=== PATIENT | female | born 1985 | race Caucasian/White ===

== ENCOUNTER 2017-08-15 01:22 | Inpatient (IN) | payer MEDICAID ==
[2017-08-15] VITALS (27 sets, daily range): BP systolic 104–152; BP diastolic 57–114; PULSE 20–167; RESP 18; TEMP 97.6–98.5; O2SAT 100
[~2017-08-15] VITALS: Ht 152.4 cm; Wt 70.3 kg
[2017-08-15] MEDS ORDERED: Iron PO (01:49)
[2017-08-15] MEDS ORDERED: Prenatal Vitamin PO (01:49)
[2017-08-15] MEDS ORDERED: LACTATED RINGER'S 1000 ML INJ 1,000 ML IV PRN (01:56)
[2017-08-15] MEDS ORDERED: LACTATED RINGER'S 1000 ML INJ 1,000 ML IV SCH (01:56)
[2017-08-15] MEDS ORDERED: LIDOCAINE HCL 1% 50 ML VIAL INFIL PRN (02:00)
[2017-08-15] MEDS ORDERED: MINERAL OIL 10 ML VIAL TOPICAL PRN (02:00)
[2017-08-15] MEDS ORDERED: SODIUM CHLORID 0.9% 500 ML INJ 500 ML IV PRN (02:00)
[2017-08-15] MEDS ORDERED: CITRIC ACID-SODIUM CITRATE LIQ 30 ML UDC PO SCH (02:00)
[2017-08-15] MEDS ORDERED: LIDOCAINE HCL 1% 50 ML VIAL I-DERMAL PRN (02:00)
[2017-08-15] MEDS ORDERED: ONDANSETRON HCL 4 MG/2 ML VIAL IV PUSH PRN (02:00)
[2017-08-15] MEDS ORDERED: OXYTOCIN 30 UNITS-500ML PREMIX 500 ML IV ONE (02:00)
[2017-08-15 02:03] LABS: AUTOMATED NEUTROPHIL # 6.4 TH/MM3 (1.8-7.7); BASOPHIL % 0.5 % (0.0-2.0); EOSINOPHIL # 0.1 TH/MM3 (0-0.4); EOSINOPHIL % 0.7 % (0.0-4.0); HEMATOCRIT 28.2 % (35.0-46.0); HEMOGLOBIN 9.2 GM/DL (11.6-15.3); LYMPH % 24.8 % (9.0-44.0); LYMPHOCYTE # 2.5 TH/MM3 (1.0-4.8); MEAN CELL VOLUME 75.1 FL (80.0-100.0); MEAN CORPUSCULAR HEMOGLOBIN 24.4 PG (27.0-34.0); MEAN CORPUSCULAR HGB CONC 32.5 % (32.0-36.0); MEAN PLATELET VOLUME 7.9 FL (7.0-11.0); MONO % 9.5 % (0.0-8.0); MONOCYTE # 0.9 TH/MM3 (0-0.9); NEUT % 64.5 % (16.0-70.0); PLATELET COUNT 360 TH/MM3 (150-450); RED BLOOD COUNT 3.75 MIL/MM3 (4.00-5.30); WHITE BLOOD COUNT 9.9 TH/MM3 (4.0-11.0)
[2017-08-15 02:09] LABS: AMORPHOUS SEDIMENT, URINE MOD; BACTERIA, URINE MOD /hpf; BILIRUBIN, URINE NEG (NEG); BLOOD, URINE MOD (NEG); GLUCOSE,URINE NEG (NEG); KETONE, URINE NEG (NEG); NITRITE,URINE NEG (NEG); SQUAMOUS EPITHELIAL CELL URINE 67 /hpf (0-5); URINE COLOR LIGHT-YELLOW (YELLW/STRAW); URINE LEUKOCYTE ESTERASE NEG (NEG)
[2017-08-15] MEDS ORDERED: fentaNYL 2MCG-BUPIV 0.125% 100 ML EPIDURAL PRN (02:15)
[2017-08-15] MEDS ORDERED: NO SYSTEM NARCOTICS PRN (02:15)
[2017-08-15] MEDS ORDERED: DO NOT ADMINISTER ANTICOAGULANTS PRN (02:15)
[2017-08-15] MEDS ORDERED: SODIUM CHLOR 0.9% 1000 ML INJ 1,000 ML IV PRN (02:16)
[2017-08-15] MEDS ORDERED: fentaNYL 2MCG-BUPIV 0.125% INJ 100 ML ONE (02:18)
--- NOTE | 2017-08-15 02:22 | HHI.HP ---
HPI Chief Complaint SROM, precipitous labor Date Seen: August 15, 2017 Time Seen: 02:00 Travel History International Travel<30 Days: No Contact w/Intl Traveler<30Days: No Known Affected Area: No History of Present Illness HPI Patient is a 32-year-old at 40 weeks who was late to care (37wks ) at [facility] who presents in precipitous labor. She had SROM at 12:30 AM this evening. She is complaining of intense regular contractions. All her labs are normal/unremarkable. GBS negative. Weeks Gestation: 40 Para: 3 : 4 History Past Medical History Narrative Medical Blood type A positive. Patient takes oral iron supplement for iron deficiency anemia. Obstetric History Obstetric History the history of 3 full-term deliveries, 2 spontaneous abortions, 3 living children Past Surgical History Narrative Surgical per EMR Surgical History: No Previous Surgery Family History Narrative Family History per EMR Family History: Negative Social History Narrative Social History per EMR Allergies-Medications (Allergen,Severity, Reaction): Coded Allergies: No Known Allergies (Verified Allergy, Unknown, 08/15/17) Home Meds Reported Medications [Iron] No Conflict Check, 1 TAB PO DAILY 08/15/17 [ Vitamin] No Conflict Check, 1 TAB PO DAILY 08/15/17 Narrative Medication Reported Meds & Active Scripts Active Reported [Iron] 1 Tab PO DAILY [ Vitamin] 1 Tab PO DAILY Review of Systems Except as stated in HPI: all other systems reviewed are Neg Physical Exam 134/101, 20, 97.9, pain 10 Vital Signs Date Time Temp Pulse Resp B/P (MAP) Pulse Ox O2 Delivery O2 Flow Rate FiO2 08/15/17 01:59 20 Narrative GENERAL: Well-nourished, well-developed patient. SKIN: Warm and dry. HEAD: Normocephalic and atraumatic. EYES: No scleral icterus. No injection or drainage. ENT: No nasal drainage noted. Mucous membranes pink. Airway patent. NECK: Supple, trachea midline. No JVD. CARDIOVASCULAR: Regular rate and rhythm without murmurs, gallops, or rubs. RESPIRATORY: Breath sounds equal bilaterally. No accessory muscle use. ABDOMEN/GI: Abdomen soft, non-tender, bowel sounds present, no rebound, no guarding Gravid to 40 weeks size GENITOURINARY: External Genitalia: intact and normal in appearance Cervix: [Medium consistency, midposition] Dilatation: [7 cm] Effacement: [90] Station: [0] Presentation: [Vertex] Membranes: [ruptured] Uterine Contractions: [q2min] FHT's: Category: [Category 2 secondary to tachycardia] Baseline: [160] Reactive: reactive Variability: Moderate variability with good accelerations noted Decels: none EXTREMITIES: No cyanosis or edema. BACK: Nontender without obvious deformity. No CVA tenderness. NEUROLOGICAL: Awake and alert. Motor and sensory grossly within normal limits. Five out of 5 muscle strength in all muscle groups. Normal speech. Caprini VTE Risk Assessment Caprini VTE Risk Assessment: No/Low Risk (score <= 1) Caprini Risk Assessment Model Point Value = 1 Point Value = 2 Point Value = 3 Point Value = 5 Age 41-60 Minor surgery BMI > 25 kg/m2 Swollen legs Varicose veins or History of unexplained or recurrent spontaneous Oral contraceptives or hormone replacement Sepsis (< 1 month) Serious lung disease, including pneumonia (< 1 month) Abnormal pulmonary function Acute myocardial infarction Congestive heart failure (< 1 month) History of inflammatory bowel disease Medical patient at bed rest Age 61-74 Arthroscopic surgery Major open surgery (> 45 min) Laparoscopic surgery (> 45 min) Malignancy Confined to bed (> 72 hours) Immobilizing plaster cast Central venous access Age >= 75 History of VTE Family history of VTE Factor V Leiden Prothrombin [id number] Lupus anticoagulant Anticardiolipin antibodies Elevated serum homocysteine Heparin-induced thrombocytopenia Other congenital or acquired thrombophilia Stroke (< 1 month) Elective arthroplasty Hip, pelvis, or leg fracture Acute spinal cord injury (< 1 month) Prophylaxis Regimen Total Risk Factor Score Risk Level Prophylaxis Regimen 0-1 Low Early ambulation 2 Moderate Order ONE of the following: *Sequential Compression Device (SCD) *Heparin 5000 units SQ BID 3-4 Higher Order ONE of the following medications: *Heparin 5000 units SQ TID *Enoxaparin/Lovenox 40 mg SQ daily (WT < 150 kg, CrCl > 30 mL/min) *Enoxaparin/Lovenox 30 mg SQ daily (WT < 150 kg, CrCl > 10-29 mL/min) *Enoxaparin/Lovenox 30 mg SQ BID (WT < 150 kg, CrCl > 30 mL/min) AND/OR *Sequential Compression Device (SCD) 5 or more Highest Order ONE of the following medications: *Heparin 5000 units SQ TID (Preferred with Epidurals) *Enoxaparin/Lovenox 40 mg SQ daily (WT < 150 kg, CrCl > 30 mL/min) *Enoxaparin/Lovenox 30 mg SQ daily (WT < 150 kg, CrCl > 10-29 mL/min) *Enoxaparin/Lovenox 30 mg SQ BID (WT < 150 kg, CrCl > 30 mL/min) AND *Sequential Compression Device (SCD) Data Data Vital Signs Reviewed: Yes Orders Orders Ob (2e) Additional Admit Info (08/15/17 01:34) Fentanyl Inj (Fentanyl Inj) (08/15/17 01:56) Admit To Inpatient (08/15/17 ) Code Status (08/15/17 01:56) Vital Signs (Adult) .Per protocol (08/15/17 01:56) Activity Oob Ad Yamilka (08/15/17 01:56) Heart (08/15/17 01:56) Amnioinfusion (08/15/17 01:56) Urinary Catheter Management .ONCE (08/15/17 01:56) Diet Npo (08/15/17 Breakfast) Lactated Ringer's 1000 Ml Inj (Lr 1000 M (08/15/17 01:56) Lactated Ringer's 1000 Ml Inj (Lr 1000 M (08/15/17 01:56) Sodium Chlorid 0.9% 500 Ml Inj (Ns 500 M (08/15/17 02:00) Sodium Chlor 0.9% 1000 Ml Inj (Ns 1000 M (08/15/17 02:16) Lidocaine 1% Inj (50 Ml) (Xylocaine 1% I (08/15/17 02:00) Citric Acid-Sodium Citrate Liq (Bicitra (08/15/17 02:00) Ondansetron Inj (Zofran Inj) (08/15/17 02:00) Fentanyl Inj (Fentanyl Inj) (08/15/17 02:00) Fentanyl Inj (Fentanyl Inj) (08/15/17 02:00) Complete Blood Count With Diff (08/15/17 01:56) Hold Clot (08/15/17 01:56) Abo/Rh Blood Type (08/15/17 01:56) Urinalysis - C+S If Indicated (08/15/17 01:56) Ob/Psych Drug Screen, Urine (08/15/17 01:56) Type And Screen (08/15/17 01:56) Resp Oxygen Non Rebreathe Mask (08/15/17 ) ^ Epidural / Intrathecal Infus (08/15/17 01:56) Oxytocin 30 Units-500ml Premix (Pitocin (08/15/17 02:00) Lidocaine 1% Inj (50 Ml) (Xylocaine 1% I (08/15/17 02:00) Light Mineral Oil (Muri-Lube Oil) (08/15/17 02:00) Inpatient Certification (08/15/17 ) Specimen To Be Collected PRN (08/15/17 01:56) Specimen To Be Collected PRN (08/15/17 01:56) Group B Strep: Negative Labs Laboratory Tests Test 08/15/17 01:44 08/15/17 01:45 White Blood Count 9.9 Red Blood Count 3.75 Hemoglobin 9.2 Hematocrit 28.2 Mean Corpuscular Volume 75.1 Mean Corpuscular Hemoglobin 24.4 Mean Corpuscular Hemoglobin Concent 32.5 Red Cell Distribution Width 18.0 Platelet Count 360 Mean Platelet Volume 7.9 Neutrophils (%) (Auto) 64.5 Lymphocytes (%) (Auto) 24.8 Monocytes (%) (Auto) 9.5 Eosinophils (%) (Auto) 0.7 Basophils (%) (Auto) 0.5 Neutrophils # (Auto) 6.4 Lymphocytes # (Auto) 2.5 Monocytes # (Auto) 0.9 Eosinophils # (Auto) 0.1 Basophils # (Auto) 0.0 CBC Comment AUTO DIFF Assessment/Plan Problem List: (1) 40 weeks gestation of ICD Codes: Z3A.40 - 40 weeks gestation of (2) Precipitate labor ICD Codes: O62.3 - Precipitate labor Assessment and Plan Patient is a 32-year-old at 40 weeks who got [facility] who presents in precipitous labor. She had SROM at 12:30 AM this evening. She is complaining of intense regular contractions. All her labs are normal/unremarkable. GBS negative. Vaginal exam 7 cm dilated, 90% effaced, 0 station. heart tracing category 2 secondary to tachycardia but otherwise reassuring with good variability and accelerations. 1) precipitous labor -Admit to inpatient -N.p.o. -CBC, UDS, urine culture -Fentanyl as needed for pain -LR IV -Monitor vital signs -Monitor heart tracing -Monitor tocometry -likely no time for epidural Leonardo Benedict MD R2 August 15, 2017 02:22
[2017-08-15] MEDS ORDERED: LIDOCAINE HCL 1% PF 5 ML AMPULE ONE (02:26)
[2017-08-15] MEDS ORDERED: LIDOCAINE 1%/EPINEPHrine 1:100,000 SOLN 30 ML VIAL ONE (02:27)
[2017-08-15] MEDS ORDERED: ePHEDrine/NS 25 MG/5 ML SYRINGE IV PUSH PRN (03:00)
[2017-08-15 03:08] LABS: BANDS 3 % (0-6); LYMPHOCYTES 25 % (9-44); METAMYELOCYTES 1 % (0-1); MONOCYTES 12 % (0-8); NEUTROPHIL # MANUAL DIFF 6.1 TH/MM3 (1.8-7.7); POLYS (SEG NEUTROPHILS) 57 % (16-70); PROMYELOCYTES 1 % (0-0)
--- NOTE | 2017-08-15 06:33 | PD.OB.DELI ---
Weeks gestation: 40 Anesthesia: Epidural Episiotomy: None Vaginal Delivery: Normal Presentation: Occiput anterior Nuchal Cord: None Delayed cord clamping (45 sec): Yes : Female, Single Delivery date: August 15, 2017 Delivery time: 06:19 One Minute : 8 Five Minute : 9 Weight: 3455g Placenta: Spontaneous delivery, Intact, Other (large blood clot attached to placenta) Laceration: No lacerations Estimated blood loss: 150 Gia Leon MD R1 August 15, 2017 06:33
[2017-08-15] MEDS ORDERED: BENZOCAINE 20% TOPICAL SPRAY 60 ML CAN TOPICAL PRN (06:45)
[2017-08-15] MEDS ORDERED: SODIUM CHLORIDE 0.9% FLUSH 10 ML FLUSH IV FLUSH PRN (06:45)
[2017-08-15] MEDS ORDERED: ACETAMINOPHEN 325 MG TAB PO PRN (06:45)
[2017-08-15] MEDS ORDERED: WITCH HAZEL 50%/GLYCERIN 12.5% 40 PAD JAR TOPICAL PRN (06:45)
[2017-08-15] MEDS ORDERED: OXYTOCIN 30 UNITS-500ML PREMIX 500 ML IV SCH (06:45)
[2017-08-15] MEDS ORDERED: oxyCODONE/ACETAMINOPHEN 5 MG/325 MG TAB PO PRN (06:45)
[2017-08-15] MEDS ORDERED: ALUMINUM/MAGNESIUM/SIMETH 30 ML CUP PO PRN (06:45)
[2017-08-15] MEDS ORDERED: ONDANSETRON ODT 4 MG TAB PO PRN (06:45)
[2017-08-15] MEDS ORDERED: SODIUM CHLORIDE 0.9% FLUSH 10 ML FLUSH IV FLUSH SCH (09:00)
[2017-08-15] MEDS: IBUPROFEN 800 MG TAB PO PRN ×2 (11:33→20:06)
[2017-08-15] MEDS: oxyCODONE/ACETAMINOPHEN 5 MG/325 MG TAB PO PRN ×2 (11:34→20:06)
[2017-08-15] MEDS: DOCUSATE SODIUM 50 MG/SENNA 8.6 MG TAB PO PRN (11:34)
[2017-08-15] MEDS ORDERED: MEASLES, MUMPS, RUBELLA VACCINE 0.5 ML VIAL SQ ONE (16:00)
[2017-08-15] MEDS ORDERED: DIPHTH/TETANUS/ACEL PERTUSSIS (BOOSTER) 0.5 ML VIAL/PFS IM ONE (16:00)
[2017-08-15] MEDS ORDERED: ZOLPIDEM TARTRATE 5 MG TAB PO PRN (21:00)
[2017-08-16] MEDS: IBUPROFEN 800 MG TAB PO PRN ×2 (04:52→12:49)
[2017-08-16] MEDS: oxyCODONE/ACETAMINOPHEN 5 MG/325 MG TAB PO PRN ×2 (04:52→12:49)
[2017-08-16 08:05] VITALS: BP 122/72; PULSE 72; RESP 18; TEMP 98.1
--- NOTE | 2017-08-16 08:09 | HHI.DCPOC ---
Discharge Care Plan Diagnosis: (1) Normal vaginal delivery Report Symptoms to Your Doctor -Temperature above 100.5 degrees -Redness, of incision or excessive or foul smelling drainage -Unusual pain or calf pain -Increased vaginal bleeding -Painful or difficulty urinating -Feelings of extreme sadness or anxiety after 2 weeks Goals to Promote Your Health * To prevent worsening of your condition and complications * To maintain your health at the optimal level Directions to Meet Your Goals Take your medications as prescribed Follow your dietary instruction Follow activity as directed Ensure plenty of rest for recovery Drink fluids for hydration Keep your appointments as scheduled Take your immunizations and boosters as scheduled If your symptoms worsen call your PCP, if no PCP go to Urgent Care Center or Emergency Room Smoking is Dangerous to Your Health. Avoid second hand smoke Call the 24-hour crisis hotline for domestic abuse at Ofelia Campbell MD R1 August 16, 2017 08:09
[2017-08-16] MEDS ORDERED: IBUP1TAB7 PO (08:10)
--- NOTE | 2017-08-16 08:12 | HHI.OB ---
Subjective Remarks 32 year old female s/p at 40 wks gestation, PPD1. AFVSS. Patient reports she is feeling well. Bleeding is decreasing and pain is well- controlled. She is breast feeding and bonding well with baby. Ambulating without difficulties. She is tolerating a diet without nausea or vomiting. She has not had a bowel movement. She has passed gas. Denies chest pain, dysuria, shortness of breath, or calf pain. Objective Vitals/I&O Vital Signs Date Time Temp Pulse Resp B/P (MAP) Pulse Ox O2 Delivery O2 Flow Rate FiO2 08/15/17 20:55 98.2 76 18 120/77 (91) 08/15/17 15:40 98.5 76 18 120/78 (92) Objective Remarks GENERAL: Well-nourished, well-developed patient. CARDIOVASCULAR: Regular rate and rhythm without murmurs, gallops, or rubs. RESPIRATORY: Breath sounds equal bilaterally. No accessory muscle use. ABDOMEN/GI: Abdomen soft, non-tender. Fundus: Firm, non-tender at umbilicus. GENITOURINARY: Light to moderate bleeding. EXTREMITIES: No cyanosis or edema, non-tender, without signs of DVT. Medications and IVs Current Medications Medications (Trade) Dose Ordered Sig/Marilou Route Start Time Stop Time Status Last Admin Fentanyl/ Bupivacaine HCl 100 ml @ 0 mls/hr TITRATE PRN EPIDURAL 08/15/17 02:15 (NS Flush) 2 ml BID IV FLUSH 08/15/17 09:00 (NS Flush) 2 ml UNSCH PRN IV FLUSH 08/15/17 06:45 (Tylenol) 650 mg Q4H PRN PO 08/15/17 06:45 (Motrin) 800 mg Q8H PRN PO 08/15/17 06:45 08/16/17 04:52 (Percocet 5-325 Mg) 1 tab Q4H PRN PO 08/15/17 06:45 08/16/17 04:52 (Percocet 5-325 Mg) 2 tab Q4H PRN PO 08/15/17 06:45 (Americaine 20% Top Spr) 1 spray Q4H PRN TOPICAL 08/15/17 06:45 (Tucks Pads) 1 applic QID PRN TOPICAL 08/15/17 06:45 (Karon-Colace) 2 tab Q12H PRN PO 08/15/17 06:45 08/15/17 11:34 (Ambien) 5 mg HS PRN PO 08/15/17 21:00 (Mag-Al Plus Susp Liq) 15 ml Q8H PRN PO 08/15/17 06:45 (Zofran Odt) 4 mg Q6H PRN PO 08/15/17 06:45 Assessment/Plan Problem List: (1) 40 weeks gestation of ICD Codes: Z3A.40 - 40 weeks gestation of (2) Precipitate labor ICD Codes: O62.3 - Precipitate labor Assessment and Plan 32 yo female s/p , PPD 1 - AFVSS - Continue routine care - Motrin PRN pain - Encourage OOB - Pelvic rest x 6 wks. - Contraception: Undecided, will discuss with OB provider - Anticipate D/C today or tomorrow Oeflia Prince Dr., MD R1 August 16, 2017 08:12
[2017-08-16] MEDS ORDERED: IRON18TA PO (10:22)
[2017-08-16] MEDS: DOCUSATE SODIUM 50 MG/SENNA 8.6 MG TAB PO PRN (12:49)
== END 2017-08-16 14:20 | disposition home or self-care (01) | DRG 775 ==
LOC: HOBED 01:22 → H2EB 01:37 → H1EA 08:58 → UNDODISIN 14:15
PROVIDERS: ADMIT Obstetrics & Gynecology Maternal & Fetal Medicine; ATTEND Obstetrics & Gynecology Maternal & Fetal Medicine
PROC: 10E0XZZ Delivery of Products of Conception, External Approach (ICD-10-PCS; principal; 2017-08-15)
PROC: 00HU33Z Insertion of Infusion Device into Spinal Canal, Percutaneous Approach (ICD-10-PCS; 2017-08-15)
PROC: 3E0R3BZ Introduction of Anesthetic Agent into Spinal Canal, Percutaneous Approach (ICD-10-PCS; 2017-08-15)
DX: O62.3 Precipitate labor (principal); Z37.0 Single live birth; Z3A.40 40 weeks gestation of pregnancy
CPT/HCPCS: 80307; 81001; 85007; 85027; 86900; 86901; 87086; 99283; G0481; J3010; J7120